=== PATIENT | female | born 1985 | race Caucasian/White ===

== ENCOUNTER 2017-07-12 08:24 | Emergency (ER) | payer MEDICARE, MEDICAID ==
[2017-07-12 10:23] LABS: FREE T3 2.95 pg/mL (2.77-5.27); FREE T4 (FREE THYROXINE) 1.12 ng/dL (0.78-2.19)
[2017-07-12 10:37] LABS: THYROID STIMULATING HORMONE 1.28 uIU/mL (0.47-4.68)
--- NOTE | 2017-07-12 10:46 | ER Document Report ---
HPI - HPI Patient complains to provider of: medication reaction Onset: Other - one month Onset/Duration: Persistent Quality of pain: No pain Severity: None Pain Level: 0 Context: Patient presents to emergency department with complaints of possible medication reaction. Patient reports on June 20 she went to see her primary care provider and was placed on levothyroxine for her hypothyroidism. She reports she had hypothyroidism for a while but has not been on medication. She reports they gave her a high dose which she reports made her feel very anxious and she was losing weight so she went to an executive vice president business development July 01. At that time they lowered the dose. When she took the lowered dose she felt really tired could not get out of bed so she decided to take the higher dose but she broke it into quarters to take a lower dose that way. Patient reports she stopped taking medication yesterday because she was feeling shaky unable to eat. She reports she has lost 30 lbs in the last few months. This morning she was feeling itchy. She denies fever vomiting nausea diarrhea. She reports this morning she was able to eat turkey some chips and a bottle water. Associated Symptoms: None Exacerbated by: Denies Relieved by: Denies Similar symptoms previously: Yes Recently seen / treated by doctor: Yes - NEURO Neurology: REPORTS: Weakness, Dizzinesss / Vertigo - REPRODUCTIVE Reproductive: DENIES: : Past Medical History - General Information source: Patient - Social History Smoking Status: Current Some Day Smoker Cigarette use (# per day): Yes Frequency of alcohol use: None Drug Abuse: None Family History: Reviewed & Not Pertinent, CAD, Hyperlipidemia, Hypertension, Malignancy, Thyroid Disfunction Patient has suicidal ideation: No Patient has homicidal ideation: No - Past Medical History Cardiac Medical History: Reports: Hx Hypercholesterolemia Denies: Hx Coronary Artery Disease, Hx Heart Attack, Hx Hypertension Pulmonary Medical History: Reports: Hx Asthma - inhalers, Hx COPD - mild Denies: Hx Bronchitis, Hx Pneumonia Neurological Medical History: Denies: Hx Cerebrovascular Accident, Hx Seizures Endocrine Medical History: Reports: Hx Hypothyroidism. Denies: Hx Diabetes Mellitus Type 2 Renal/ Medical History: Denies: Hx Peritoneal Dialysis GI Medical History: Reports: Hx Gastritis, Hx Irritable Bowel, Hx Colonoscopy, Hx Endoscopy Musculoskeltal Medical History: Denies Hx Arthritis, Reports Hx Musculoskeletal Trauma - right foot Skin Medical History: Reports Hx MRSA Psychiatric Medical History: Reports: Hx Anxiety, Hx Attention Deficit Hyperactivity Disorder Traumatic Medical History: Reports: Hx Fractures - right and left foot Past Surgical History: Reports: Hx Adenoidectomy, Hx Breast Surgery, Hx Cholecystectomy, Hx Tonsillectomy - Immunizations Immunizations up to date: Yes Hx Diphtheria, Pertussis, Tetanus Vaccination: Yes Vertical Provider Document - CONSTITUTIONAL Agree With Documented VS: Yes Exam Limitations: No Limitations General Appearance: WD/WN, No Apparent Distress - INFECTION CONTROL TRAVEL OUTSIDE OF THE [place] IN LAST 30 DAYS: No - HEENT HEENT: Atraumatic, Normocephalic, PERRLA. negative: Conjuctival Injection, Pharyngeal Erythema - NECK Neck: Normal Inspection, Supple. negative: Lymphadenopathy-Left, Lymphadenopathy-Right - RESPIRATORY Respiratory: Breath Sounds Normal, No Respiratory Distress - CARDIOVASCULAR Cardiovascular: Regular Rate, Regular Rhythm - GI/ABDOMEN Gastrointestinal: Abdomen Soft, Abdomen Non-Tender - BACK Back: Normal Inspection - MUSCULOSKELETAL/EXTREMETIES Musculoskeletal/Extremeties: MAEW, FROM - NEURO Level of Consciousness: Awake, Alert, Appropriate Motor/Sensory: No Motor Deficit - DERM Integumentary: Warm, Dry, No Rash - pt reports rash to abdomen, non visualized at this time Course - Re-evaluation Re-evalutation: 07/12/17 10:59 pt was provided with a copy of her labs. Patient was instructed on the importance of following up with her provider as scheduled Friday. She was instructed to return to the emergency department for any concerns. She verbalized understanding tall instructions. - Vital Signs Vital signs: Temp Pulse Resp BP Pulse Ox 98.2 F 79 16 134/87 H 98 07/12/17 08:30 07/12/17 08:30 07/12/17 08:30 07/12/17 08:30 07/12/17 08:30 Discharge - Discharge Clinical Impression: History of hypothyroidism Medication reaction Qualifiers: Encounter type: initial encounter Qualified Code(s): T88.7XXA - Unspecified adverse effect of drug or medicament, initial encounter Condition: Stable Disposition: HOME, SELF-CARE Additional Instructions: *You have been evaluated for suspected medication reaction *Follow up with a primary care provider Friday as scheduled. Take the copy of your labs *Return to ED for worsening condition, changes, needs Referrals: YARED FUENTES MD [Primary Care Provider] - 07/14/17
[2017-07-12 11:18] VITALS: BP 112/72
== END 2017-07-12 11:05 | disposition home or self-care (01) ==
LOC: ER 08:24
DX: E03.9 Hypothyroidism, unspecified (principal); R42 Dizziness and giddiness; R53.1 Weakness; L29.9 Pruritus, unspecified; T38.1X5A Adverse effect of thyroid hormones and substitutes, initial encounter; Z91.14 Patient's other noncompliance with medication regimen; F17.210 Nicotine dependence, cigarettes, uncomplicated; J44.9 Chronic obstructive pulmonary disease, unspecified
CPT/HCPCS: 36415; 84439; 84443; 84481; 84703; 99283

== ENCOUNTER 2017-10-01 10:52 | Emergency (ER) | payer MEDICARE, MEDICAID ==
--- NOTE | 2017-10-01 11:21 | ER Document Report ---
ED Medical Screen (RME) - General Chief Complaint: Dizziness Stated Complaint: DIZZY, HEAD PAIN, HEART RATE ISSUE Time Seen by Provider: 10/01/17 11:03 Mode of Arrival: Ambulatory Information source: Patient TRAVEL OUTSIDE OF THE U.[place]. IN LAST 30 DAYS: No - HPI Patient complains to provider of: Chest pain, nausea, dizziness Onset: Yesterday - Related Data Allergies/Adverse Reactions: amoxicillin [Amoxicillin] Allergy (Severe, Verified 10/01/17 11:00) swelling metronidazole [From Flagyl] Allergy (Severe, Verified 10/01/17 11:00) redness, n and v Penicillins Allergy (Severe, Verified 10/01/17 11:00) swelling sulfamethoxazole [From Bactrim] Allergy (Severe, Verified 10/01/17 11:00) rash trimethoprim [From Bactrim] Allergy (Severe, Verified 10/01/17 11:00) rash Past Medical History - Past Medical History Cardiac Medical History: Reports: Hx Hypercholesterolemia Denies: Hx Coronary Artery Disease, Hx Heart Attack, Hx Hypertension Pulmonary Medical History: Reports: Hx Asthma - inhalers, Hx COPD - mild Denies: Hx Bronchitis, Hx Pneumonia Neurological Medical History: Denies: Hx Cerebrovascular Accident, Hx Seizures Endocrine Medical History: Reports: Hx Hypothyroidism. Denies: Hx Diabetes Mellitus Type 2 Renal/ Medical History: Denies: Hx Peritoneal Dialysis GI Medical History: Reports: Hx Gastritis, Hx Irritable Bowel, Hx Colonoscopy, Hx Endoscopy Musculoskeltal Medical History: Denies Hx Arthritis, Reports Hx Musculoskeletal Trauma - right foot Skin Medical History: Reports Hx MRSA Psychiatric Medical History: Reports: Hx Anxiety, Hx Attention Deficit Hyperactivity Disorder Traumatic Medical History: Reports: Hx Fractures - right and left foot Past Surgical History: Reports: Hx Adenoidectomy, Hx Breast Surgery, Hx Cholecystectomy, Hx Tonsillectomy - Immunizations Immunizations up to date: Yes Hx Diphtheria, Pertussis, Tetanus Vaccination: Yes Physical Exam - Vital signs Vitals: Temp Pulse Resp BP Pulse Ox 98.6 F 71 16 124/78 98 10/01/17 11:04 10/01/17 11:04 10/01/17 11:04 10/01/17 11:04 10/01/17 11:04 Course - Vital Signs Vital signs: Temp Pulse Resp BP Pulse Ox 98.6 F 71 16 124/78 98 10/01/17 11:04 10/01/17 11:04 10/01/17 11:04 10/01/17 11:04 10/01/17 11:04 Doctor's Discharge - Discharge Referrals: YARED FUENTES MD [Primary Care Provider] - Follow up as needed
[2017-10-01 12:13] LABS: ABSOLUTE LYMPHOCYTES (AUTO) 2.4 10^3/uL (0.5-4.7); ABSOLUTE MONOCYTES (AUTO) 0.4 10^3/uL (0.1-1.4); ABSOLUTE NEUT (AUTO) 4.7 10^3/uL (1.7-8.2); BASOPHILS % (AUTO) 0.4 % (0-2); EOSINOPHILS % (AUTO) 0.3 % (0-6); HEMATOCRIT 43.4 % (36.0-47.0); LYMPHOCYTES % (AUTO) 31.6 % (13-45); MEAN CORPUSCULAR HEMOGLOBIN 32.1 pg (27.0-33.4); MEAN CORPUSCULAR HGB CONC 34.6 g/dL (32.0-36.0); MEAN CORPUSCULAR VOLUME 93 fl (80-97); MONOCYTES % (AUTO) 5.7 % (3-13); PLATELET COUNT 279 10^3/uL (150-450); RED BLOOD COUNT 4.68 10^6/uL (3.72-5.28); RED CELL DISTRIBUTION WIDTH 14.5 % (11.5-14.0); TOTAL CELLS COUNTED % (AUTO) 100 %; WHITE BLOOD COUNT 7.6 10^3/uL (4.0-10.5)
[2017-10-01 12:19] LABS: APPEARANCE,URINE CLEAR; BILIRUBIN,URINE NEGATIVE (NEGATIVE); COLOR,URINE YELLOW; GLUCOSE, URINE NEGATIVE (NEGATIVE); KETONES,URINE NEGATIVE (NEGATIVE); LEUKOCYTE ESTERASE,URINE NEGATIVE (NEGATIVE); NITRITE,URINE NEGATIVE (NEGATIVE); PROTEIN,URINE NEGATIVE (NEGATIVE); URINE SPECIFIC GRAVITY 1.012; UROBILINOGEN,URINE NEGATIVE mg/dL (<2.0)
[2017-10-01 12:29] LABS: ALANINE AMINOTRANSFERASE 15 U/L (9-52); ALBUMIN 4.5 g/dL (3.5-5.0); ALKALINE PHOSPHATASE 43 U/L (38-126); ANION GAP 12 (5-19); ASPARTATE AMINO TRANSFERASE 15 U/L (14-36); BILIRUBIN,DIRECT 0.3 mg/dL (0.0-0.4); BILIRUBIN,TOTAL 0.7 mg/dL (0.2-1.3); BLOOD UREA NITROGEN 10 mg/dL (7-20); CALCIUM 9.9 mg/dL (8.4-10.2); CARBON DIOXIDE 30 mmol/L (22-30); CHLORIDE 104 mmol/L (98-107); GLUCOSE 84 mg/dL (75-110); LIPASE 71.9 U/L (23-300); POTASSIUM 4.1 mmol/L (3.6-5.0); SODIUM 145.6 mmol/L (137-145); TOTAL PROTEIN 7.2 g/dL (6.3-8.2)
[2017-10-01 12:32] LABS: URINE AMPHETAMINES SCREEN NEGATIVE; URINE BARBITURATES SCREEN NEGATIVE; URINE BENZODIAZEPINES SCREEN NEGATIVE; URINE COCAINE SCREEN NEGATIVE; URINE MARIJUANA (THC) SCREEN NEGATIVE; URINE METHADONE SCREEN NEGATIVE; URINE PHENCYCLIDINE SCREEN NEGATIVE
[2017-10-01 12:49] LABS: FREE T3 2.75 pg/mL (2.77-5.27); FREE T4 (FREE THYROXINE) 1.11 ng/dL (0.78-2.19)
[2017-10-01 13:02] LABS: THYROID STIMULATING HORMONE 1.64 uIU/mL (0.47-4.68)
[2017-10-01] MEDS ORDERED: ONDANSETRON 4 MG TAB.RAPDIS PO ONE (13:59)
--- NOTE | 2017-10-01 14:00 | ER Document Report ---
ED General - General Mode of Arrival: Ambulatory Information source: Patient TRAVEL OUTSIDE OF THE [place] IN LAST 30 DAYS: No <ESTRELLITA ACE - Last Filed: 10/01/17 14:42> <ZAKIYA MAYBERRY - Last Filed: 10/01/17 15:52> - General Chief Complaint: Dizziness Stated Complaint: DIZZY, HEAD PAIN, HEART RATE ISSUE Time Seen by Provider: 10/01/17 11:03 Notes: 32-year-old female with multiple bizarre complaints including "falling down and having the shakes", "uncontrolled body movements", pain behind her teeth, head/ jaw/tooth numbness, and increased stress. Patient states she has been having these symptoms for months and it is unclear what made her come to the emergency department today for the symptoms. Patient states that she was prescribed Xanax to help with the stress which helped a little bit but she is still unable to get a full nights sleep. PCP: Dr. Malhotra (ESTRELLITA ACE) - Related Data Allergies/Adverse Reactions: amoxicillin [Amoxicillin] Allergy (Severe, Verified 10/01/17 11:00) swelling metronidazole [From Flagyl] Allergy (Severe, Verified 10/01/17 11:00) redness, n and v Penicillins Allergy (Severe, Verified 10/01/17 11:00) swelling sulfamethoxazole [From Bactrim] Allergy (Severe, Verified 10/01/17 11:00) rash trimethoprim [From Bactrim] Allergy (Severe, Verified 10/01/17 11:00) rash Past Medical History - General Information source: Patient - Social History Smoking Status: Current Every Day Smoker Cigarette use (# per day): Yes Chew tobacco use (# tins/day): No Frequency of alcohol use: None Drug Abuse: None Lives with: Family Family History: Reviewed & Not Pertinent, CAD, Hyperlipidemia, Hypertension, Malignancy, Thyroid Disfunction Patient has suicidal ideation: No Patient has homicidal ideation: No - Past Medical History Cardiac Medical History: Reports: Hx Hypercholesterolemia Pulmonary Medical History: Reports: Hx Asthma - inhalers, Hx COPD - mild Endocrine Medical History: Reports: Hx Hypothyroidism GI Medical History: Reports: Hx Gastritis, Hx Irritable Bowel, Hx Colonoscopy, Hx Endoscopy Musculoskeletal Medical History: Reports Hx Musculoskeletal Trauma - right foot Skin Medical History: Reports Hx MRSA Psychiatric Medical History: Reports: Hx Anxiety, Hx Attention Deficit Hyperactivity Disorder Traumatic Medical History: Reports: Hx Fractures - right and left foot Past Surgical History: Reports: Hx Adenoidectomy, Hx Breast Surgery, Hx Cholecystectomy, Hx Tonsillectomy - Immunizations Immunizations up to date: Yes Hx Diphtheria, Pertussis, Tetanus Vaccination: Yes <ESTRELLITA ACE - Last Filed: 10/01/17 14:42> Review of Systems - Review of Systems Constitutional: No symptoms reported EENT: No symptoms reported Cardiovascular: No symptoms reported Respiratory: No symptoms reported Gastrointestinal: No symptoms reported Genitourinary: No symptoms reported Female Genitourinary: No symptoms reported Musculoskeletal: No symptoms reported Skin: No symptoms reported Hematologic/Lymphatic: No symptoms reported Neurological/Psychological: See HPI, Other - Stress, bizarre movements described as "uncontrolled", head numbness, jaw and teeth numbness, pain behind eyes "the shakes", memory issues -: Yes All other systems reviewed and negative <ESTRELLITA ACE - Last Filed: 10/01/17 14:42> Physical Exam <ESTRELLITA ACE - Last Filed: 10/01/17 14:42> <ZAKIYA MAYBERRY - Last Filed: 10/01/17 15:52> - Vital signs Vitals: Temp Pulse Resp BP Pulse Ox 98.6 F 71 16 124/78 98 10/01/17 11:04 10/01/17 11:04 10/01/17 11:04 10/01/17 11:04 10/01/17 11:04 - Notes Notes: Physical Exam: General: Alert, appears well. HEENT: Normocephalic. Atraumatic. PERRL. Extraocular movements intact. Oropharynx clear. Neck: Supple. Non-tender. Respiratory: No respiratory distress. Clear and equal breath sounds bilaterally. Cardiovascular: Regular rate and rhythm. Abdominal: Normal Inspection. Non-tender. No distension. Normal Bowel Sounds. Back: Non-tender. No deformity or step off. Extremities: Moves all four extremities. Upper extremities: Normal inspection. Normal ROM. Lower extremities: Normal inspection. No edema. Normal ROM. Neurological: Normal cognition. AAOx4. Normal speech. Psychological: Somewhat odd affect. Skin: Warm. Dry. Normal color. (ESTRELLITA ACE) Course - Laboratory Result Diagrams: 10/01/17 11:40 10/01/17 11:40 <ESTRELLITA AEC - Last Filed: 10/01/17 14:42> - Laboratory Result Diagrams: 10/01/17 11:40 10/01/17 11:40 - EKG Interpretation by Me EKG shows normal: Sinus rhythm, [place], Intervals, QRS Complexes, ST-T Waves Rate: Normal - 58 Rhythm: NSR <ZAKIYA MAYBERRY - Last Filed: 10/01/17 15:52> - Re-evaluation Re-evalutation: 10/01/17 15:47 Sarabjit Kern spoke with the patient about her multiple somatic complaints and possible stressors and triggers, which include some of children's behaviors. ( see the psychiatric consultation notes). She did give her resources available in the mental health [place]. The patient seems resistant to this approach. I told her she can either do that or follow-up with her primary care provider to get more Xanax since that seemed to help, but that was not the most constructive ways to deal with her problems. She then asks what she supposed to do about "this" and she puts her hands up around her face and jaws. (ZAKIYA MAYBERRY) - Vital Signs Vital signs: Temp Pulse Resp BP Pulse Ox 98.6 F 71 13 109/69 96 10/01/17 11:04 10/01/17 11:04 10/01/17 14:43 10/01/17 14:43 10/01/17 14:43 - Laboratory Laboratory results interpreted by me: 10/01/17 10/01/17 10/01/17 11:40 11:40 11:40 RDW 14.5 H Sodium 145.6 H Free T3 pg/mL 2.75 L Urine Blood 10/01/17 11:40 RDW Sodium Free T3 pg/mL Urine Blood SMALL H Discharge <ESTRELLITA ACE - Last Filed: 10/01/17 14:42> <ZAKIYA MAYBERRY - Last Filed: 10/01/17 15:52> - Discharge Clinical Impression: Anxiety disorder Qualifiers: Anxiety disorder type: unspecified anxiety disorder Qualified Code(s): F41.9 - Anxiety disorder, unspecified Condition: Stable Disposition: HOME, SELF-CARE Additional Instructions: Anxiety The physician feels that some of your health problems are being caused by anxiety. Anxiety affects your health in many ways. Anxiety alone can cause palpitations, sweats, chest pains, abdominal pains, shortness of breath, and headaches. It contributes to ulcer disease, high blood pressure, irritable bowel syndrome, and has been shown to cause flare-ups of many other diseases. Anxiety is not a simple disorder to treat. If the anxiety is due to recent life stresses, you may simply need time to "work through" the changes. If the anxiety is due to an underlying unhappiness with yourself or due to psychiatric disturbance, professional help will be needed. Your physician can refer you for further help if needed. Chronic or frequent use of anti-anxiety medications is not a good idea because the body becomes reliant on it, preventing you from dealing with life's normal stresses. Follow-up with one of the mental health resources provided by [facility] Kern, or with your primary care provider. RETURN TO THE EMERGENCY ROOM IF ANY NEW OR WORSENING SYMPTOMS. Referrals: YARED MALHOTRA MD [Primary Care Provider] - Follow up as needed Scribe Attestation: 10/01/17 14:15 I personally performed the services described in the documentation, reviewed and edited the documentation which was dictated to the scribe in my presence, and it accurately records my words and actions. (ZAKIYA MAYBERRY) Scribe Documentation - Scribe Written by Leonidas:: Leonidas Kingsley, 10/01/2017 1448 acting as scribe for :: Cristobal <ESTRELLITA ACE - Last Filed: 10/01/17 14:42>
[2017-10-01 15:58] VITALS: BP 110/78
--- NOTE | 2017-10-01 21:51 | EKG REPORT ---
SEVERITY:- NORMAL ECG - SINUS RHYTHM : Confirmed by: Sam Yang 01-Oct-2017 21:51:11
== END 2017-10-01 15:58 | disposition home or self-care (01) ==
LOC: ER 10:52
DX: F41.9 Anxiety disorder, unspecified (principal); R42 Dizziness and giddiness; R51 Headache; F17.210 Nicotine dependence, cigarettes, uncomplicated; E78.00 Pure hypercholesterolemia, unspecified; E03.9 Hypothyroidism, unspecified; Z88.0 Allergy status to penicillin; Z88.3 Allergy status to other anti-infective agents; Z86.14 Personal history of Methicillin resistant Staphylococcus aureus infection; Z90.49 Acquired absence of other specified parts of digestive tract
CPT/HCPCS: 93005; 99284; 36415; 84439; 83690; 84443; 84703; 85025; 80053; 81001; 80307; 84481; 93010; A9270; S0119

== ENCOUNTER 2017-11-05 05:46 | Emergency (ER) | payer MEDICARE, MEDICAID ==
--- NOTE | 2017-11-05 06:32 | RADIOLOGY REPORT (SQ) ---
CLINICAL DATA: 32-year-old female with right foot pain TECHNICAL DATA: Three x-ray views of the right foot were performed. COMPARISONS: None FINDINGS: There is no evidence of fracture or dislocation. There is no significant arthritis or degenerative change. No focal lytic or sclerotic bone lesions are seen. Bone mineralization is normal No focal soft tissue abnormalities are identified. IMPRESSION: No evidence of acute osseous injury involving the right foot.
--- NOTE | 2017-11-05 07:20 | ER Document Report ---
ED Extremity Problem, Lower - General Mode of Arrival: Ambulatory Information source: Patient TRAVEL OUTSIDE OF THE [place] IN LAST 30 DAYS: No - General Chief Complaint: Foot Pain Stated Complaint: FOOT PAIN Time Seen by Provider: 11/05/17 07:06 Notes: 32-year-old female that presents to the emergency department today with complaints of right foot pain. Patient states she injured her foot last night by "walking on something". Patient is still able to ambulate with mild pain. Patient denies ankle pain. (ESTRELLITA ACE) - Related Data Allergies/Adverse Reactions: amoxicillin [Amoxicillin] Allergy (Severe, Verified 10/01/17 11:00) swelling metronidazole [From Flagyl] Allergy (Severe, Verified 10/01/17 11:00) redness, n and v Penicillins Allergy (Severe, Verified 10/01/17 11:00) swelling sulfamethoxazole [From Bactrim] Allergy (Severe, Verified 10/01/17 11:00) rash trimethoprim [From Bactrim] Allergy (Severe, Verified 10/01/17 11:00) rash Past Medical History - General Information source: Patient, [facility] Records - Social History Smoking Status: Current Every Day Smoker Cigarette use (# per day): Yes Family History: Reviewed & Not Pertinent, CAD, Hyperlipidemia, Hypertension, Malignancy, Thyroid Disfunction Patient has suicidal ideation: No Patient has homicidal ideation: No - Past Medical History Cardiac Medical History: Reports: Hx Hypercholesterolemia Pulmonary Medical History: Reports: Hx Asthma - inhalers, Hx COPD - mild Endocrine Medical History: Reports: Hx Hypothyroidism GI Medical History: Reports: Hx Gastritis, Hx Irritable Bowel, Hx Colonoscopy, Hx Endoscopy Musculoskeletal Medical History: Reports Hx Musculoskeletal Trauma - right foot Skin Medical History: Reports Hx MRSA Psychiatric Medical History: Reports: Hx Anxiety, Hx Attention Deficit Hyperactivity Disorder Traumatic Medical History: Reports: Hx Fractures - right and left foot Past Surgical History: Reports: Hx Adenoidectomy, Hx Breast Surgery, Hx Cholecystectomy, Hx Tonsillectomy - Immunizations Immunizations up to date: Yes Hx Diphtheria, Pertussis, Tetanus Vaccination: Yes Review of Systems - Review of Systems Constitutional: No symptoms reported EENT: No symptoms reported Cardiovascular: No symptoms reported Respiratory: No symptoms reported Gastrointestinal: No symptoms reported Genitourinary: No symptoms reported Female Genitourinary: No symptoms reported Musculoskeletal: See HPI, Other - right ankle pain Skin: No symptoms reported Hematologic/Lymphatic: No symptoms reported Neurological/Psychological: No symptoms reported -: Yes All other systems reviewed and negative Physical Exam - Vital signs Vitals: Temp Pulse Resp BP Pulse Ox 98.9 F 60 16 103/69 100 11/05/17 05:49 11/05/17 05:49 11/05/17 05:49 11/05/17 05:49 11/05/17 05:49 - Notes Notes: Physical Exam: General: Alert, appears well. HEENT: Normocephalic. Atraumatic. PERRLA. Extraocular movements intact. Oropharynx clear. Neck: Supple. Respiratory: No respiratory distress. Abdominal: Normal Inspection. No distension. Extremities: Moves all four extremities. Mild swelling over the dorsal lateral foot particularly over the cuboid. Some tenderness with palpation over the cuboid and base of the fifth metatarsal. No ankle swelling or tenderness with palpation. Neurological: Normal cognition. AAOx4. Normal speech. Psychological: Normal affect. Normal Mood. Skin: Warm. Dry. Normal color. (ESTRELLITA ACE) - Vital Signs Vital signs: Temp Pulse Resp BP Pulse Ox 98.9 F 60 16 103/69 100 11/05/17 05:49 11/05/17 05:49 11/05/17 05:49 11/05/17 05:49 11/05/17 05:49 Discharge - Discharge Clinical Impression: Sprain of foot, right Qualifiers: Encounter type: initial encounter Qualified Code(s): S93.601A - Unspecified sprain of right foot, initial encounter Condition: Stable Disposition: HOME, SELF-CARE Additional Instructions: Foot Sprain: Your injury is a sprain. A sprain results from stretching of the ligaments , usually from a twisting injury. The ligaments will require time and protection in order to heal properly. Many sprains are quite disabling and should be taken seriously. The usual initial treatment of sprains is cold packs, elevation, and rest of the injured area. Your physician has assessed the seriousness of your ligament injury, and has outlined a treatment plan. Understand that this treatment may change, depending on how you progress. If a re-examination was recommended, it is important that you follow up as instructed. Call the doctor any time if there is severe pain, numbness, or loss of function in the injured area. Use ice packs to the painful swollen area off and on throughout the day. Elevate your foot as much as possible. Limit weight bearing as much as possible. Take Tylenol and ibuprofen or Aleve for pain if needed. Try using a [facility]le [facility]. Follow-up with your doctor if not improving over the next several days. Referrals: YARED FUENTES MD [Primary Care Provider] - Follow up as needed Scribe Attestation: 11/05/17 07:22 I personally performed the services described in the documentation, reviewed and edited the documentation which was dictated to the scribe in my presence, and it accurately records my words and actions. (ZAKIYA MAYBERRY) Scribe Documentation - Scribe Written by Leonidas:: Leonidas Kingsley, 11/05/2017 0757 acting as scribe for :: Cristobal
[2017-11-05 07:47] VITALS: BP 90/47
== END 2017-11-05 07:46 | disposition home or self-care (01) ==
LOC: ER 05:46
DX: S93.601A Unspecified sprain of right foot, initial encounter (principal); W22.8XXA Striking against or struck by other objects, initial encounter; F17.210 Nicotine dependence, cigarettes, uncomplicated; E78.00 Pure hypercholesterolemia, unspecified; Z88.0 Allergy status to penicillin; Z88.3 Allergy status to other anti-infective agents; Z86.14 Personal history of Methicillin resistant Staphylococcus aureus infection; Z90.49 Acquired absence of other specified parts of digestive tract
CPT/HCPCS: 99283

== ENCOUNTER 2018-01-14 09:30 | Day surgery (SDC) | payer MEDICARE, MEDICAID ==
[2018-01-14] MEDS ORDERED: ONDANSETRON HCL INJ/PF 4 MG/2 ML SDV ONE (09:36)
[2018-01-14] MEDS ORDERED: EPINEPHRINE INJ 1 MG/10 ML DISP.SYRIN ONE (09:37)
[2018-01-14] MEDS ORDERED: FLUMAZENIL INJ 0.5 MG/5 ML VIAL ONE (09:37)
[2018-01-14] MEDS ORDERED: NALOXONE HCL INJ/PF 0.4 MG/1 ML SDV ONE (09:37)
[2018-01-14] MEDS ORDERED: GLUCAGON,HUMAN RECOMB 1 MG INJ ONE (09:37)
[2018-01-14] MEDS: MIDAZOLAM 2 MG/2 ML INJ ONE ×3 (10:00→10:08)
[2018-01-14] MEDS: FENTANYL CITRATE INJ/PF 100 MCG/2 ML AMPUL ONE ×4 (10:02→10:12)
--- NOTE | 2018-01-14 10:20 | Operative Report ---
Operative Report DATE OF SURGERY: 01/14/18 Operative Report: The risks benefits and alternatives of the procedure explained to the patient in detail and informed consent is obtained.A GIF Olympus video scope was inserted into the patient's mouth and hypopharynx ,the esophagus is identified intubated and insufflated, the scope was then advanced through the esophagus stomach and duodenum, retroflexion maneuver is done, the esophagus stomach and first and second portions of the duodenum examined PREOPERATIVE DIAGNOSIS: Dysphagia, epigastric pain POSTOPERATIVE DIAGNOSIS: Gastritis status post biopsy rule out Helicobacter pylori. Duodenitis OPERATION: EGD with biopsy SURGEON: EVAN CERVANTES ANESTHESIA: Moderate Sedation - 6 mg of Versed, 150 mcg of fentanyl. Conscious sedation monitoring time 30 minutes. TISSUE REMOVED OR ALTERED: As noted above. COMPLICATIONS: None. ESTIMATED BLOOD LOSS: None. INTRAOPERATIVE FINDINGS: As noted above. PROCEDURE: Patient tolerated the procedure well. No immediate postprocedure complications are noted. Patient discharged in good condition. Discharge date 01/14/2018. Discharge diet: Regular. Discharge activity: Regular. 2-3-week follow-up to discuss findings. Patient is instructed call the office or proceed to the emergency room should there be any further problems or questions. Wait on the pathology.
[2018-01-14 11:29] VITALS: BP 91/49
== END 2018-01-14 12:01 | disposition home or self-care (01) ==
LOC: END 09:30
PROVIDERS: ATTEND Internal Medicine Gastroenterology
DX: K29.50 Unspecified chronic gastritis without bleeding (principal); K29.80 Duodenitis without bleeding; J45.909 Unspecified asthma, uncomplicated; E03.9 Hypothyroidism, unspecified; Z87.891 Personal history of nicotine dependence; Z79.899 Other long term (current) drug therapy; Z88.0 Allergy status to penicillin; Z88.2 Allergy status to sulfonamides
CPT/HCPCS: 43239; 88342 ×2; 88305 ×2; J2250; J3010; J2405; J0171; J1610; J2310; J3490

== ENCOUNTER 2018-04-02 22:51 | Emergency (ER) | payer OTHER, MEDICARE, MEDICAID ==
[2018-04-03] MEDS ORDERED: ONDANSETRON 4 MG TAB.RAPDIS PO ONE (00:15)
[2018-04-03] MEDS ORDERED: ACETAMINOPHEN 325 MG TABLET PO ONE (00:15)
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
[2018-04-03 02:10] VITALS: BP 108/66
== END 2018-04-03 02:09 | disposition home or self-care (01) ==
LOC: ER 22:51
DX: R51 Headache (principal); M54.2 Cervicalgia; V89.2XXA Person injured in unspecified motor-vehicle accident, traffic, initial encounter; E78.00 Pure hypercholesterolemia, unspecified; E03.9 Hypothyroidism, unspecified; Z88.0 Allergy status to penicillin; Z88.3 Allergy status to other anti-infective agents; Z86.14 Personal history of Methicillin resistant Staphylococcus aureus infection; Z90.49 Acquired absence of other specified parts of digestive tract
CPT/HCPCS: 99284; 72050; 70450; S0119